=== PATIENT | female | born 1945 | race Asian ===

== ENCOUNTER 2018-08-30 20:59 | Emergency (ER) | payer BC, MEDICARE, OTHER ==
[~2018-08-30] VITALS: Ht 154.9 cm; Wt 65.8 kg
[2018-08-30 21:23] LABS: BASOPHILS % (AUTO) 0.4 % (0.0-2.0); EOSINOPHILS % (AUTO) 1.3 % (1.0-6.0); HEMATOCRIT 28.2 % (36-46); HEMOGLOBIN 9.4 g/dL (12.0-16.0); LYMPHOCYTES # (AUTO) 1.9 K/uL (1.0-4.8); LYMPHOCYTES % (AUTO) 10.9 % (22.0-44.0); MEAN CORPUSCULAR HEMOGLOBIN 31.8 pg (26.0-34.0); MEAN CORPUSCULAR HGB CONC 33.4 G/dL (31.0-37.0); MEAN CORPUSCULAR VOLUME 95 fL (80-100); MONOCYTES % (AUTO) 5.8 % (2.0-9.0); NEUTROPHILS # (AUTO) 14.2 K/uL (1.8-7.7); NEUTROPHILS % (AUTO) 81.6 % (40.0-70.0); PLATELET COUNT (AUTO) 326 K/uL (150-450); RED BLOOD CELL COUNT(AUTO) 2.96 MIL/uL (4.00-5.20); RED CELL DISTRIBUTION WIDTH 13.5 % (11.5-14.5)
[2018-08-30] MEDS ORDERED: CYCL25CA PO (21:29)
[2018-08-30] MEDS ORDERED: FURO40 PO (21:29)
[2018-08-30] MEDS ORDERED: RANI150T7 PO (21:29)
[2018-08-30] MEDS ORDERED: LEVO125 PO (21:29)
[2018-08-30] MEDS ORDERED: ASCO500 PO (21:29)
[2018-08-30] MEDS ORDERED: METO-558 PO (21:29)
[2018-08-30] MEDS ORDERED: PRED5 PO (21:29)
[2018-08-30] MEDS ORDERED: ATOR40TA28 PO (21:29)
[2018-08-30] MEDS ORDERED: ASPI81 PO (21:29)
[2018-08-30] MEDS ORDERED: SODI650T PO (21:29)
[2018-08-30] MEDS ORDERED: IOVERSOL 320 MG/ML 100 ML VIAL ONE (21:29)
[2018-08-30] MEDS ORDERED: CLOP75 PO (21:29)
[2018-08-30] MEDS ORDERED: CALC-789 PO (21:29)
[2018-08-30] MEDS ORDERED: SODIUM CHLORIDE 0.9% 100 ML ONE (21:30)
[2018-08-30 21:37] LABS: ALBUMIN 2.4 g/dL (3.4-5.0); BILIRUBIN,TOTAL 0.4 mg/dL (0.1-1.0); CALCIUM, TOTAL 8.5 mg/dL (8.8-10.5); CREATININE 4.03 mg/dL (0.60-1.30); INR 0.9 (0.9-1.1); POTASSIUM 3.9 mmol/L (3.5-5.1); PROTHROMBIN TIME 9.7 SEC (9.4-11.6); TOTAL PROTEIN, SERUM 7.2 g/dL (6.4-8.2)
[2018-08-30] MEDS ORDERED: INSULIN REGULAR, HUMAN 100 UNITS/ML IVP ONE (22:00)
[2018-08-30] MEDS ORDERED: ALTEPLASE PER STROKE PROTOCOL CLINICAL ONE (22:00)
[2018-08-30] MEDS ORDERED: LABETALOL HCL 5 MG/ML 20 ML VIAL IVP ONE ×2 (22:00→22:45)
[2018-08-30] MEDS ORDERED: WATER FOR INJECTION STERILE IV ONE ×3 (22:15)
[2018-08-30] MEDS ORDERED: ALTEPLASE IV ONE ×3 (22:15)
[2018-08-30 22:50] VITALS: BP 166/121
[2018-08-30 22:50] LABS: GLUCOSE,POINT OF CARE 322 MG/DL (70-110)
== END 2018-08-31 00:35 | disposition short-term general hospital (02) ==
LOC: EMS 21:00
DX: I12.0 Hypertensive chronic kidney disease with stage 5 chronic kidney disease or end stage renal disease (principal); E11.22 Type 2 diabetes mellitus with diabetic chronic kidney disease; N18.6 End stage renal disease; I63.9 Cerebral infarction, unspecified; E11.65 Type 2 diabetes mellitus with hyperglycemia; R41.82 Altered mental status, unspecified; I25.2 Old myocardial infarction; Z94.0 Kidney transplant status; Z99.2 Dependence on renal dialysis; Z88.8 Allergy status to other drugs, medicaments and biological substances; Z79.82 Long term (current) use of aspirin; Z79.899 Other long term (current) drug therapy
CPT/HCPCS: 36415; 51702; 70450; 70496; 71045; 80053; 82962; 84484; 85025; 85610; 85730; 93005; 96374; 96375; 99291; J1815; J3490; J7050; Q9967; J2997